=== PATIENT | female | born 1985 | race African-American/Black ===

== ENCOUNTER 2017-02-25 19:05 | Emergency (ER) | payer OTHER ==
[2017-02-25 19:53] LABS: INR-International Normal Ratio 1.1; PTT 27.1 SEC (22.9-36.1); Prothrombin Time 14.4 SEC (12.0-14.7)
[2017-02-25 19:56] LABS: #Eosinphils 0.1 thou/uL (0.0-0.7); #Lymphocytes 1.8 thou/uL (1.20-3.40); #Monocytes 0.6 thou/uL (0.11-0.59); #Neutrophils 1.3 thou/uL (1.40-6.50); %Basophils 1.2 % (0.0-1.0); %Eosinophils 2.4 % (0.0-10.0); %Lymphocytes 47.8 % (21.0-51.0); %Monocytes 14.8 % (0.0-10.0); %Neutrophils 33.9 % (42.0-75.0); Hemoglobin 12.8 g/dL (12.0-16.0); Mean Platelet Volume 5.8 fL (7.4-10.4); Platelet Count 390 thou/uL (130-400); RBC Distribution Width 11.2 % (11.5-14.5); Red Blood Cell (RBC) Count 4.41 mill/uL (4.20-5.40); White Blood Cell (WBC) Count 3.8 thou/uL (4.8-10.8)
[2017-02-25 19:58] LABS: BHCG - Serum NEGATIVE (NEGATIVE); Pregs Control Background? CLEAR/WHITE (CLR/WHITE); Pregs Control Bar Appear? YES (CONTROL BAR)
[2017-02-25 20:02] LABS: ALT (SGPT) 20 U/L (8-55); AST (SGOT) 21 U/L (5-34); Albumin 3.5 g/dL (3.5-5.0); Alkaline Phosphatase 63 U/L (40-150); Anion Gap 13 mmol/L (10-20); BUN (Urea Nitrogen) 15 mg/dL (7.0-18.7); Bilirubin, Total 0.6 mg/dL (0.2-1.2); Calc. Creatinine Clearance 0 mL/min (70-130); Calcium 8.7 mg/dL (7.8-10.44); Carbon Dioxide 22 mmol/L (22-29); Chloride 107 mmol/L (98-107); Estimated GFR-MDRD 74; Globulin 3.1 g/dL (2.4-3.5); Glucose 107 mg/dL (70-105); Potassium 3.3 mmol/L (3.5-5.1); Protein, Total 6.6 g/dL (6.0-8.3); Sodium 139 mmol/L (136-145)
[2017-02-25 20:04] LABS: CKMB 1.4 ng/mL (0-6.6); Troponin I Less than 0.010 ng/mL (< 0.028)
[2017-02-25 20:13] LABS: D-Dimer Test Less than 0.27 *mcg/mL (0.27-0.43)
--- NOTE | 2017-02-25 21:20 | RAD ---
CHEST TWO VIEWS 02/25/17 Comparison is made with a 02/02/06 study. The heart is a little generous in size, but no different than it was before. The lungs are clear and fully inflated. There is no vascular congestion, edema or pleural effusion. The bony structures norman wed no acute change. The mediastinum appears normal and the trachea is midline. IMPRESSION: No acute thoracic findings. POS: HOME
== END 2017-02-25 20:30 | disposition home or self-care (01) ==
LOC: BURERS 19:05
DX: F41.9 Anxiety disorder, unspecified (principal); I10 Essential (primary) hypertension; Z79.899 Other long term (current) drug therapy
CPT/HCPCS: 71020; 80053; 82553; 83880; 84484; 84703; 85025; 85379; 85610; 85730; 93005; 94760

== ENCOUNTER 2017-03-24 07:46 | Emergency (ER) | payer OTHER ==
[2017-03-24 08:24] LABS: ALT (SGPT) 32 U/L (8-55); AST (SGOT) 26 U/L (5-34); Albumin 3.7 g/dL (3.5-5.0); Alkaline Phosphatase 56 U/L (40-150); Anion Gap 16 mmol/L (10-20); BUN (Urea Nitrogen) 14 mg/dL (7.0-18.7); Bilirubin, Total 0.8 mg/dL (0.2-1.2); Calc. Creatinine Clearance 0 mL/min (70-130); Carbon Dioxide 22 mmol/L (22-29); Chloride 104 mmol/L (98-107); Estimated GFR-MDRD Greater than 90; Globulin 3.5 g/dL (2.4-3.5); Glucose 99 mg/dL (70-105); Potassium 3.5 mmol/L (3.5-5.1); Protein, Total 7.2 g/dL (6.0-8.3); Sodium 138 mmol/L (136-145)
[2017-03-24 08:25] LABS: Bilirubin Negative (Negative); Blood, Urine Negative (Negative); Clarity Slightly Cloudy (Clear); Glucose, Urine (Dipstick) Negative (Negative); Leukocyte Negative (Negative); Nitrite Negative (Negative); Protein, Urine (Dipstick) 30 mg/dL (Neg-Trace); Specific Gravity, Urine 1.025 (1.005-1.030)
[2017-03-24 08:29] LABS: #Eosinphils 0.1 thou/uL (0.0-0.7); #Lymphocytes 1.2 thou/uL (1.20-3.40); #Monocytes 0.5 thou/uL (0.11-0.59); #Neutrophils 1.4 thou/uL (1.40-6.50); %Basophils 0.8 % (0.0-1.0); %Monocytes 14.8 % (0.0-10.0); %Neutrophils 44.4 % (42.0-75.0); Hemoglobin 13.6 g/dL (12.0-16.0); Mean Corpuscular HGB CONC 32.7 g/dL (32.0-36.0); Mean Corpuscular Volume 85.7 fl (81.0-99.0); Mean Platelet Volume 5.8 fL (7.4-10.4); Platelet Count 430 thou/uL (130-400); RBC Distribution Width 11.4 % (11.5-14.5); Red Blood Cell (RBC) Count 4.85 mill/uL (4.20-5.40); White Blood Cell (WBC) Count 3.2 thou/uL (4.8-10.8)
[2017-03-24] MEDS ORDERED: Ondansetron HCl/PF 4 MG/2 ML Vial ONE (08:31)
[2017-03-24 08:34] LABS: RBC/HPF None Seen HPF (0-3); WBC/HPF 0-3 HPF (0-3)
[2017-03-24 08:35] LABS: Bacteria/HPF 1+ HPF (None Seen)
[2017-03-24] MEDS ORDERED: cefTRIAXone\\ROCEPHIN 1 GM VIAL ONE (08:50)
[2017-03-24] MEDS ORDERED: Ketorolac Tromethamine 30 MG/ML VIAL ONE (08:50)
[2017-03-24] MEDS ORDERED: Sodium Chloride 0.9% 100 ML ONE (08:50)
[2017-03-24 08:59] LABS: Pregnancy Test - Urine (BHCG) Negative (Negative); Pregu Control Background? CLEAR/WHITE (CLR/WHITE); Pregu Control Bar Appear? YES (CONTROL BAR); Specific Gravity 1.025 (1.002-1.036)
[2017-03-25 20:18] LABS: Chlamydia by PCR Not Detected (NotDetected); GC by PCR Not Detected (NotDetected)
== END 2017-03-24 09:37 | disposition home or self-care (01) ==
LOC: BURERS 07:46
DX: R30.0 Dysuria (principal); R10.30 Lower abdominal pain, unspecified; I10 Essential (primary) hypertension; F41.9 Anxiety disorder, unspecified; Z79.899 Other long term (current) drug therapy
CPT/HCPCS: 80053; 81003; 81015; 81025; 85025; 87491; 87591; 96365; 96375; J0696; J1885; J2405; J7050

== ENCOUNTER 2018-01-31 14:46 | Emergency (ER) | payer MEDICAID, OTHER ==
[2018-01-31] MEDS ORDERED: AMOXicillin 250 MG CAP ONE (15:06)
== END 2018-01-31 15:10 | disposition home or self-care (01) ==
LOC: BURERS 14:46
DX: J20.9 Acute bronchitis, unspecified (principal); R05 Cough; I10 Essential (primary) hypertension; Z86.73 Personal history of transient ischemic attack (TIA), and cerebral infarction without residual deficits; J45.909 Unspecified asthma, uncomplicated; F41.9 Anxiety disorder, unspecified
CPT/HCPCS: 99283

== ENCOUNTER 2019-06-12 01:44 | Emergency (ER) | payer OTHER | END 2019-06-12 02:00 | disposition home or self-care (01) | LOC: BURERS 01:44 | DX: R11.2 Nausea with vomiting, unspecified (principal); I10 Essential (primary) hypertension; J45.909 Unspecified asthma, uncomplicated; F41.9 Anxiety disorder, unspecified; Z79.899 Other long term (current) drug therapy; Z86.73 Personal history of transient ischemic attack (TIA), and cerebral infarction without residual deficits | CPT/HCPCS: 99283 ==

== ENCOUNTER 2020-05-20 17:54 | Emergency (ER) | payer OTHER ==
[2020-05-20 19:09] LABS: Hemoglobin 11.6 g/dL (12.0-16.0); Mean Corpuscular HGB CONC 30.7 g/dL (32.0-36.0); Mean Corpuscular Hemoglobin 28.6 pg (27.0-31.0); Mean Corpuscular Volume 93.2 fL (78.0-98.0); Mean Platelet Volume 6.2 fL (7.4-10.4); Platelet Count 172 thou/uL (130-400); RBC Distribution Width 11.5 % (11.5-14.5); Red Blood Cell (RBC) Count 4.05 mill/uL (4.20-5.40); White Blood Cell (WBC) Count 3.9 thou/uL (4.8-10.8)
[2020-05-20 19:24] LABS: ALT (SGPT) 16 U/L (8-55); AST (SGOT) 12 U/L (5-34); Albumin 3.4 g/dL (3.5-5.0); Alkaline Phosphatase 66 U/L (40-110); Anion Gap 12 mmol/L (10-20); BUN (Urea Nitrogen) 14 mg/dL (7.0-18.7); Bilirubin, Total 0.4 mg/dL (0.2-1.2); Calc. Creatinine Clearance 0 mL/min (70-130); Calcium 8.1 mg/dL (7.8-10.44); Carbon Dioxide 24 mmol/L (22-29); Chloride 108 mmol/L (98-107); Estimated GFR-MDRD Greater than 90; Globulin 2.8 g/dL (2.4-3.5); Glucose 97 mg/dL (70-105); Potassium 3.6 mmol/L (3.5-5.1); Protein, Total 6.2 g/dL (6.0-8.3); Sodium 140 mmol/L (136-145)
[2020-05-20 19:25] LABS: Band 2 % (5-11); Eosinophils 2 % (0-10); Lymphocytes 50 % (21-51); MDiff Complete? YES; Monocytes 11 % (0-10); Neutrophil 33 % (42-75); Reactive Lymphocytes 1 % (0-10)
[2020-05-20 20:03] LABS: Bilirubin Negative (Negative); Blood, Urine Negative (Negative); Glucose, Urine (Dipstick) Negative (Negative); Ketone, Urine Negative (Negative); Leukocyte Small (Negative); Nitrite Negative (Negative); Protein, Urine (Dipstick) Negative (Neg-Trace)
[2020-05-20 20:04] LABS: Clarity Hazy (Clear)
[2020-05-20 20:06] LABS: RBC/HPF None Seen HPF (0-3)
[2020-05-20 20:07] LABS: Bacteria/HPF 1+ HPF (None Seen); Mucous/LPF Rare LPF (<2+); Squamous Epithelial 0-3 HPF (0-3); Trichomonas/HPF Rare HPF (None Seen); WBC/HPF 0-3 HPF (0-3)
--- NOTE | 2020-05-20 20:28 | CT ---
CT OF THE BRAIN WITHOUT CONTRAST: 05/20/20 The ventricles are normal in size with no shift. No intracranial bleeding was seen. There is no sign of acute stroke, mass or edema. The abdul-white distinction is good. The visible paranasal sinuses and mastoid air cells are clear. IMPRESSION: No acute intracranial findings. Preliminary report called to Angela in ER at 2012 on 05/20/20. POS: HOME
--- NOTE | 2020-05-20 20:29 | RAD ---
PORTABLE CHEST: 05/20/20 An AP portable film at 1918 is compared with a 12/17/19 study. The heart is normal in size and the lungs are clear. No infiltrate or effusion was seen. There is no vascular congestion or edema. IMPRESSION: No acute thoracic finding. POS: HOME
[2020-05-21 18:19] LABS: SARS-CoV-2 MS2 Positive; SARS-CoV-2 N Gene Negative; SARS-CoV-2 S Gene Negative; SARS-CoV-2 by NAA Not Detected (NotDetected); SARS-CoV-2 orf1ab Negative
== END 2020-05-20 21:04 | disposition home or self-care (01) ==
LOC: BURERS 17:54
DX: R51 Headache (principal); R03.0 Elevated blood-pressure reading, without diagnosis of hypertension; A59.01 Trichomonal vulvovaginitis; J45.909 Unspecified asthma, uncomplicated; Z86.73 Personal history of transient ischemic attack (TIA), and cerebral infarction without residual deficits
CPT/HCPCS: 70450; 71045; 80053; 81003; 81015; 83605; 84443; 84484; 85025; 87635; 93005; 94760; U0003

== ENCOUNTER 2022-03-10 21:52 | Emergency (ER) | payer OTHER ==
[2022-03-10 22:30] LABS: #Basophils 0.1 thou/uL (0.0-0.2); #Eosinphils 0.2 thou/uL (0.0-0.7); #Lymphocytes 1.7 thou/uL (1.20-3.40); #Monocytes 0.5 thou/uL (0.11-0.59); #Neutrophils 1.2 thou/uL (1.40-6.50); %Basophils 1.4 % (0.0-1.0); %Eosinophils 5.3 % (0.0-10.0); %Lymphocytes 46.9 % (21.0-51.0); %Monocytes 13.6 % (0.0-10.0); %Neutrophils 32.6 % (42.0-75.0); Hemoglobin 12.9 g/dL (12.0-16.0); Mean Corpuscular HGB CONC 33.1 g/dL (32.0-36.0); Mean Corpuscular Hemoglobin 29.3 pg (27.0-31.0); Mean Corpuscular Volume 88.4 fL (78.0-98.0); Mean Platelet Volume 5.8 fL (7.4-10.4); Platelet Count 427 thou/uL (130-400); RBC Distribution Width 11.7 % (11.5-14.5); Red Blood Cell (RBC) Count 4.42 mill/uL (4.20-5.40); White Blood Cell (WBC) Count 3.7 thou/uL (4.8-10.8)
[2022-03-10 22:41] LABS: Prothrombin Time 13.1 sec (12.0-14.7)
[2022-03-10 22:47] LABS: ALT (SGPT) 19 U/L (8-55); AST (SGOT) 20 U/L (5-34); Albumin 3.8 g/dL (3.5-5.0); Alkaline Phosphatase 64 U/L (40-110); Anion Gap 16 mmol/L (10-20); BUN (Urea Nitrogen) 14 mg/dL (7.0-18.7); Bilirubin, Total 0.6 mg/dL (0.2-1.2); Calc. Creatinine Clearance 0 mL/min (70-130); Calcium 8.5 mg/dL (7.8-10.44); Carbon Dioxide 22 mmol/L (22-29); Chloride 104 mmol/L (98-107); Globulin 3.5 g/dL (2.4-3.5); Glucose 98 mg/dL (70-105); Potassium 3.2 mmol/L (3.5-5.1); Protein, Total 7.3 g/dL (6.0-8.3); Sodium 139 mmol/L (136-145)
[2022-03-10 23:00] LABS: Bilirubin Negative (Negative); Blood, Urine Negative (Negative); Clarity Clear (Clear); Glucose, Urine (Dipstick) Negative (Negative); Ketone, Urine Negative (Negative); Leukocyte Negative (Negative); Nitrite Negative (Negative); Protein, Urine (Dipstick) Negative (Neg-Trace); Specific Gravity, Urine 1.015 (1.005-1.030); pH, Urine 6.5 (5.0-9.0)
[2022-03-10 23:04] LABS: Pregnancy Test - Urine (BHCG) Negative (Negative); Pregu Control Background? CLEAR/WHITE (CLR/WHITE); Pregu Control Bar Appear? YES (CONTROL BAR); Specific Gravity 1.015 (1.002-1.036)
[2022-03-11] MEDS ORDERED: Aspirin Chewable 81 MG TAB ONE (00:13)
[2022-03-11 15:22] LABS: SARS-CoV-2 PCR by NAA Not Detected (NotDetected)
== END 2022-03-11 01:30 | disposition short-term general hospital (02) ==
LOC: BURERS 21:52
DX: I10 Essential (primary) hypertension (principal); R29.810 Facial weakness; R29.703 NIHSS score 3; J45.909 Unspecified asthma, uncomplicated; Z20.822 Contact with and (suspected) exposure to COVID-19; Z86.73 Personal history of transient ischemic attack (TIA), and cerebral infarction without residual deficits; Z79.899 Other long term (current) drug therapy
CPT/HCPCS: 70450; 70496; 70498; 80053; 81003; 81025; 84484; 85025; 85610; 85730; 93005; U0003; U0005

== ENCOUNTER 2022-04-23 12:15 | Emergency (ER) | payer OTHER | END 2022-04-23 12:53 | disposition home or self-care (01) | LOC: BURERS 12:15 | DX: I10 Essential (primary) hypertension (principal); Z76.0 Encounter for issue of repeat prescription | CPT/HCPCS: 99281 ==